=== PATIENT | female | born 1960 | race Caucasian/White ===

== ENCOUNTER 2019-11-22 06:23 | Day surgery (SDC) | payer BC ==
[~2019-11-22 06:23] MED LIST: Lactated Ringers 1,000 ML IV SCH; Lidocaine 1%/Sod Bicarbonate in NS 8.4% 1 ML Syringe IDERM PRN; Sodium Chloride 0.9% 10 ML Syringe FLUSH PRN
[2019-11-22] MEDS ORDERED: Scopolamine 1.5 MG Transdermal Patch TOP SCH (06:30)
[2019-11-22] MEDS ORDERED: Propofol 200 MG/20 ML SDV ONE ×2 (06:42→06:45)
[2019-11-22] MEDS ORDERED: Lactated Ringers 1,000 ML ONE (06:42)
[2019-11-22] MEDS ORDERED: Lidocaine 1% 4 ML ONE (06:42)
[2019-11-22] MEDS ORDERED: Ondansetron 4 MG/2 ML SDV ONE (06:42)
[2019-11-22] MEDS ORDERED: fentaNYL 250 MCG/5 ML SDV ONE (06:42)
[2019-11-22] MEDS ORDERED: Midazolam 1 MG/ML 2 ML SDV ONE (06:42)
[2019-11-22] MEDS ORDERED: ceFAZolin 1 GM Vial ONE (06:42)
[2019-11-22] MEDS ORDERED: Ketorolac 30 MG/ML SDV ONE (06:43)
[2019-11-22] MEDS ORDERED: Dexamethasone 4 MG/ML 5 ML MDV ONE (06:43)
[2019-11-22] MEDS ORDERED: Ketamine 500 mg/10 ML MDV ONE (06:49)
[2019-11-22] MEDS ORDERED: Bupivacaine 0.25% 10 ML SDV ONE (06:51)
[2019-11-22] MEDS ORDERED: ePHEDrine Sulfate/0.9% NaCl/Pf 25 MG/5 ML SYRINGE IV ONE (07:29)
[2019-11-22] MEDS ORDERED: Ondansetron 4 MG/2 ML SDV IVPUSH PRN (08:06)
[2019-11-22] MEDS ORDERED: fentaNYL 100 MCG/2 ML SDV IVPUSH PRN (08:06)
--- NOTE | 2019-11-22 08:06 | PCM.PREANE ---
Preanesthetic Assessment - Procedure Proposed Procedure: Right patella hardware removal - Anesthesia/Transfusion/Family Hx Anesthesia History: Prior Anesthesia Reaction Type of Anesthesia Reaction: Excessive Nausea/Vomiting Family History of Anesthesia Reaction: No - Review of Systems General: No Symptoms Pulmonary: No Symptoms, Other (Occasional smoker. ) Cardiovascular: No Symptoms Gastrointestinal: No Symptoms Neurological: No Symptoms Other: Reports: Thyroid Problems - Physical Assessment NPO Status Date: 11/21/19 NPO Status Time: 20:00 Vital Signs: Last Vital Signs Temp 36.7 C 11/22/19 06:35 Pulse 68 11/22/19 06:35 Resp 16 11/22/19 06:35 BP 128/79 11/22/19 06:35 Pulse Ox 98 11/22/19 06:35 Height: 1.63 m Weight: 59.421 kg ASA Class: 2 Mental Status: Alert & Oriented x3 Airway Class: Mallampati = 2 Dentition: Reports: Normal Dentition, Caries Thyro-Mental Finger Breadths: 2 Mouth Opening Finger Breadths: 3 ROM/Head Extension: Full Lungs: Clear to Auscultation, Normal Respiratory Effort Cardiovascular: Regular Rate, Regular Rhythm - Lab Values: Laboratory Last Values MRSA (PCR) Negative 11/14/19 11:30 - Allergies Allergies/Adverse Reactions: Allergies Allergy/AdvReac Type Severity Reaction Status Date / Time No Known Allergies Allergy Verified 11/21/19 13:38 - Anesthesia Plan Pre-Op Medication Ordered: Other (Scopalamine Patch) - Acknowledgements Anesthesia Type Planned: General Anesthesia (TIVA ) Pt an Appropriate Candidate for the Planned Anesthesia: Yes Alternatives and Risks of Anesthesia Discussed w Pt/Guardian: Yes Pt/Guardian Understands and Agrees with Anesthesia Plan: Yes PreAnesthesia Questionnaire HEENT History: Reports: Allergic Rhinitis, Cataract, Other (See Below) Other HEENT History: left eye pain, stye, wears glasses Cardiovascular History: Reports: None Respiratory History: Reports: Other (See Below) Other Respiratory History: cough, upper respiratory infection Gastrointestinal History: Reports: None Genitourinary History: Reports: Other (See Below) Other Genitourinary History: dysuria, urgency, UTI 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 (See Below) Other OB/BYN History: Bacterial vaginosis, gardnerella Musculoskeletal History: Reports: Osteoporosis, Other (See Below) Other Musculoskeletal History: body aches, patella fracutre, knee swelling Neurological History: Reports: None Psychiatric History: Reports: Other (See Below) Other Psychiatric History: insomnia Endocrine/Metabolic History: Reports: Hypothyroidism, Vitamin D Deficiency Hematologic History: Reports: None Immunologic History: Reports: None Oncologic (Cancer) History: Reports: None Dermatologic History: Reports: Other (See Below) Other Dermatologic History: skin lesions, filiform wart, skin tags, actinic keratosis, viral warts, seborrheic keratosis - Past Surgical History Head Surgeries/Procedures: Reports: None HEENT Surgical History: Reports: Naso-Sinus Surgery, Oral Surgery Cardiovascular Surgical History: Reports: None Respiratory Surgical History: Reports: None GI Surgical History: Reports: None Female Surgical History: Reports: Breast Implant, Section, D&C Male Surgical History: Reports: None Endocrine Surgical History: Reports: None Neurological Surgical History: Reports: None Other Musculoskeletal Surgeries/Procedures:: foot surgery, knee surgery Oncologic Surgical History: Reports: None Dermatological Surgical History: Reports: None - SUBSTANCE USE Smoking Status *Q: Former Smoker Recreational Drug Use History: No - HOME MEDS Home Medications: Home Meds Cholecalciferol (Vitamin D3) [Vitamin D3] 5,000 unit PO DAILY 11/21/19 [History] Levothyroxine 75 mcg PO DAILY 11/21/19 [History] Liothyronine Sodium 5 mg PO DAILY 11/21/19 [History] Varenicline Tartrate [Chantix] 1 tab PO BID 11/21/19 [History] Acetaminophen/HYDROcodone [[place] 325-5 MG] 1 - 2 tab PO Q6H PRN #20 tablet 11/21 [Rx] Aspirin 325 mg PO BID #84 tab 11/22/19 [Rx] - CURRENT (IN HOUSE) MEDS Current Meds: Current Medications Lactated Ringer's (Ringers, Lactated) 1,000 mls @ 125 mls/hr IV ASDIRECTED DAVIS Stop: 11/22/19 23:00 Last Admin: 11/22/19 06:45 Dose: 125 mls/hr Lidocaine/Sodium Bicarbonate (Buffered Lidocaine 1% In Ns 8.4%) 0.25 ml IDERM ONETIME PRN PRN Reason: Prior to IV Start Stop: 11/22/19 18:00 Last Admin: 11/22/19 06:45 Dose: 0.25 ml Scopolamine (Transderm-Scop) 1.5 mg TOP ONETIME DAVIS Stop: 11/22/19 18:00 Last Admin: 11/22/19 06:41 Dose: 1.5 mg Sodium Chloride (Saline Flush) 10 ml FLUSH ASDIRECTED PRN PRN Reason: Keep Vein Open Stop: 11/22/19 18:00 Discontinued Medications Bupivacaine HCl (Sensorcaine-Mpf 0.25%) Confirm Administered Dose 30 ml .ROUTE .STK-MED ONE Stop: 11/22/19 06:52 Cefazolin Sodium (Ancef) Confirm Administered Dose 2 gm .ROUTE .ST-MED ONE Stop: 11/22/19 06:43 Dexamethasone (Dexamethasone) Confirm Administered Dose 20 mg .ROUTE .ST-MED ONE Stop: 11/22/19 06:44 Ephedrine Sulfate (Ephedrine 25 Mg/5 Ml Syringe) Confirm Administered Dose 25 mg IV .ST-MED ONE Stop: 11/22/19 07:30 Fentanyl (Sublimaze) Confirm Administered Dose 250 mcg .ROUTE .ST-MED ONE Stop: 11/22/19 06:43 Lidocaine HCl (Xylocaine-Mpf 1%) Confirm Administered Dose 4 mls @ as directed .ROUTE .ST-MED ONE Stop: 11/22/19 06:43 Lactated Ringer's (Ringers, Lactated) Confirm Administered Dose 1,000 mls @ as directed .ROUTE .ST-MED ONE Stop: 11/22/19 06:43 Ketamine HCl (Ketalar) Confirm Administered Dose 500 mg .ROUTE .ST-MED ONE Stop: 11/22/19 06:50 Ketorolac Tromethamine (Toradol) Confirm Administered Dose 30 mg .ROUTE .ST- MED ONE Stop: 11/22/19 06:44 Midazolam HCl (Versed 1 Mg/Ml) Confirm Administered Dose 2 mg .ROUTE .ST-MED ONE Stop: 11/22/19 06:43 Ondansetron HCl (Zofran) Confirm Administered Dose 4 mg .ROUTE .STK-MED ONE Stop: 11/22/19 06:43 Propofol (Diprivan 20 Ml) Confirm Administered Dose 400 mg .ROUTE .STK-MED ONE Stop: 11/22/19 06:43 Propofol (Diprivan 20 Ml) Confirm Administered Dose 400 mg .ROUTE .STK-MED ONE Stop: 11/22/19 06:46
--- NOTE | 2019-11-22 08:56 | PCM.POSTAN ---
POST ANESTHESIA ASSESSMENT - MENTAL STATUS Mental Status: Alert, Oriented - VITAL SIGNS Vital Signs: Last Vital Signs Temp 36.7 C 11/22/19 06:35 Pulse 68 11/22/19 06:35 Resp 16 11/22/19 06:35 BP 128/79 11/22/19 06:35 Pulse Ox 98 11/22/19 06:35 0850 109/59 77 14 98% 97.5F - RESPIRATORY Respiratory Status: Respiratory Rate WNL, Airway Patent, O2 Saturation Stable - CARDIOVASCULAR CV Status: Pulse Rate WNL, Blood Pressure Stable - GASTROINTESTINAL GI Status: No Symptoms - PAIN Pain Score: 0 - POST OP HYDRATION Hydration Status: Adequate & Stable
--- NOTE | 2019-11-22 08:58 | CR ---
Knee: Four fluoroscopic spot views were obtained of the right knee. Study is centered to the patella. Exam performed utilizing the C-arm. Comparison: Prior right knee exam of 10/09/18. Study shows removal of hardware affixing previous patellar fracture. Fluoroscopy time given as 42.1 seconds. Impression: 1. Procedural study as noted above. Diagnostic code #2 This report was dictated in MDT
[2019-11-22] MEDS ORDERED: Acetaminophen/HYDROcodone 325-5 MG Tab PO PRN (10:00)
--- NOTE | 2019-11-22 10:25 | PCM48HPAN ---
Post Anesthesia Note - EVALUATION WITHIN 48HRS OF ANESTHETIC Vital Signs in Normal Range: Yes Patient Participated in Evaluation: Yes Respiratory Function Stable: Yes Airway Patent: Yes Cardiovascular Function Stable: Yes Hydration Status Stable: Yes Pain Control Satisfactory: Yes Nausea and Vomiting Control Satisfactory: Yes Mental Status Recovered: Yes Vital Signs: Last Vital Signs Temp 36.2 C 11/22/19 09:45 Pulse 76 11/22/19 09:45 Resp 16 11/22/19 09:45 BP 138/78 11/22/19 09:45 Pulse Ox 97 11/22/19 09:45
--- NOTE | 2019-11-26 12:47 | PCM.OPNOTE ---
- General Post-Op/Procedure Note Date of Surgery/Procedure: 11/22/19 Operative Procedure(s): right knee painful patellar hardware Pre Op Diagnosis: painful hardware right patella Post-Op Diagnosis: Same Anesthesia Technique: General LMA, Local Primary Surgeon: Meng Adams Anesthesia Provider: [employer] Planner: Edie Otoole in mLs: 5 Complications: None Condition: Good
--- NOTE | 2019-11-26 13:14 | OR ---
DATE OF OPERATION: 11/22/2019 SURGEON: Meng Adams MD OPERATION PERFORMED: Right knee painful patellar hardware removal. PREOPERATIVE DIAGNOSIS: Painful hardware, right patella. POSTOPERATIVE DIAGNOSIS: Painful hardware, right patella. ANESTHESIA: General LMA with local. ANESTHESIA PROVIDER: Ingrid Llamas DIMENSIONAL INSPECTOR: Edie Otoole PA-C ESTIMATED BLOOD LOSS: Less than 5 mL. COMPLICATIONS: None. CONDITION: Stable. DESCRIPTION OF PROCEDURE: The patient was identified in the preop holding area. Proper site was marked and identified by the surgeon. The patient was taken back to the operating theater where after adequate anesthesia, the patient's right lower extremity had a nonsterile tourniquet applied and then sterilely prepped and draped in the usual sterile fashion. OR time-out was performed. Patient received 2 g IV Ancef. Right lower extremity was then exsanguinated and tourniquet was insufflated to 250 mmHg. The previous incision was utilized in its full length and this was taken down to the quadriceps tendon as well as the patella. There was noted to be significant scar tissue as well as overgrowth of tissue over the K-wires. They were bent on both ends, and secondary to this, we did have to go all the way down to the point where we had to be able to clip the wire on 1 end to be able to pull them. We started proximally first and I was able to make an incision over one of the wires utilizing C-arm fluoroscopy. It was noted to have significant scar overgrowth and I did have to extend this through the quadriceps tendon down significantly to the point where I could get pliers and then a cutter to be able to cut one end of the K-wire. One of the limbs of the wire was also found at this time, and I was able to clip that. Attention was turned to the other wire proximally and I was able to get down to it, but at this time, I was unable to get enough of the K-wire exposed while mobilizing the scar tissue as well as quadriceps, so I had to go distally. I then went distally to try to find the end there and again had significant scar tissue after cutting in line with the patellar tendon and could not get the wire cutters through it, so I again turned proximally and was able to secure enough tissue to the point where I was able to clip the K-wire. The cerclage wire was then very difficult to get out. It had significant overgrowth and I had to clip it in multiple areas in order to remove it piece by piece which did take considerable time, more than was expected. I was able to pull out both K-wires with no remaining hardware as well as remove all cerclage wiring in the end, but again with great difficulty secondary to the significant tissue overgrowth from the healing. Once this had been completed, adequate saline was irrigated through the wounds. 0 Vicryl was used for closure for the in-line cutting of both the quadriceps tendon as well as the patellar tendon. 2-0 Vicryl was used subcutaneously, and edmond were used for the skin. Patient was placed in a sterile soft dressing and sent to the PACU in stable condition. C-arm fluoroscopy final images did show all hardware was removed. MILENA /[id number]
== END 2019-11-22 11:15 | disposition home or self-care (01) ==
LOC: JD.SDS 06:23
PROVIDERS: ATTEND Orthopaedic Surgery
DX: T84.84XA Pain due to internal orthopedic prosthetic devices, implants and grafts, initial encounter (principal); E03.9 Hypothyroidism, unspecified; F17.210 Nicotine dependence, cigarettes, uncomplicated; Z79.899 Other long term (current) drug therapy; Z98.890 Other specified postprocedural states; Y83.1 Surgical operation with implant of artificial internal device as the cause of abnormal reaction of the patient, or of later complication, without mention of misadventure at the time of the procedure
CPT/HCPCS: 20680; 76000; 87641; A9270; J0171; J0690; J1100; J1885; J2001; J2250; J2405; J2704; J3010; J3490; J7120; 01392